=== PATIENT | female | born 1960 | race Caucasian/White ===

== ENCOUNTER → 2017-08-11 | Outpatient (CLI) | payer BC ==
[~2017-08-11] MED LIST: AMLO1TAB95 PO; CONTRAST GIVEN MC PRN; LEVO25TA55 PO; LOSA25TA4 PO
[2017-08-11] MEDS: IOHEXOL 300 MG/ML 100ML VIAL. IV ONE (09:25)
[2017-08-11] MEDS: IOHEXOL 240 MG/ML 50ML VIAL. PO ONE (09:25)
--- NOTE | 2017-08-11 10:06 | KCIC ---
Indication: Left flank pain. Hydronephrosis on outside ultrasound. Previous cholecystectomy, hysterectomy, and splenectomy. Technique: Precontrast imaging was performed. Portal venous phase imaging with coronal and sagittal reformats is provided. Oral contrast and 67 mL of Omnipaque 300 was administered without complication. No comparison is available. One or more of the following individualized dose reduction techniques were utilized for this examination: 1. Automated exposure control 2. Adjustment of the mA and/or kV according to patient size 3. Use of iterative reconstruction technique Findings: Precontrast imaging demonstrates no obstructing or nonobstructing renal calculus. The kidneys are symmetrically perfused. Extrarenal pelvises are noted. No dilation of either ureter is apparent. Bladder is moderately distended and grossly unremarkable, is not opacified with contrast given timing of the study. There is dependent atelectasis. There is no pleural effusion. The heart is not enlarged. The liver is normal in appearance. Gallbladder is absent. Spleen is absent. Pancreas is unremarkable. There is no adrenal mass. 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 Bulky calcified plaque in the infrarenal aorta appears to at least moderately narrow the lumen. There is also bulky plaque within both common iliac arteries which may result in luminal narrowing on the right. There is questionable mural thickening in the duodenum versus incomplete distention. No additional small bowel mural thickening is apparent in the small bowel is normal caliber. The colon is grossly unremarkable. Cecum extends down into the pelvis and the appendix is in the pelvis in the midline, normal in appearance. Uterus is surgically absent. A few calcified phleboliths are noted. There is no adnexal mass or free pelvic fluid. There are minimal degenerative changes at the lumbosacral junction. IMPRESSION: 1. No acute abdominal findings. No obstructing or nonobstructing renal calculus. 2. Questionable mural thickening in the duodenum, correlate with any concern for duodenitis. This could certainly be secondary to incomplete distention. 3. Bulky atheromatous disease in the abdominal aorta and common iliac arteries, may narrow the infrarenal abdominal aorta and right common iliac artery. Consider duplex evaluation or CT angiogram if further workup is required. Electronically signed by: Alonso Beatty MD (08/11/2017 10:03 AM) [id number]
== END | disposition home or self-care (01) ==
LOC: KCIC CT 08:12
PROVIDERS: ATTEND Family Medicine
DX: N13.30 Unspecified hydronephrosis (principal); I70.0 Atherosclerosis of aorta; Z90.49 Acquired absence of other specified parts of digestive tract; Z90.81 Acquired absence of spleen
CPT/HCPCS: 74178; Q9966; Q9967